=== PATIENT | male | born 1970 | race Caucasian/White ===

== ENCOUNTER → 2017-10-20 | Outpatient (CLI) | payer OTHER | LOC: EDSTATUS 12:46 → FIMAGING 12:46 | PROVIDERS: ATTEND Specialist | DX: R93.422 Abnormal radiologic findings on diagnostic imaging of left kidney (principal); R93.41 Abnormal radiologic findings on diagnostic imaging of renal pelvis, ureter, or bladder; I87.8 Other specified disorders of veins ==

== ENCOUNTER → 2018-06-25 | Outpatient (CLI) | payer OTHER | LOC: FIMAGING 14:15 | PROVIDERS: ATTEND Specialist | DX: I87.8 Other specified disorders of veins (principal); Z87.442 Personal history of urinary calculi ==